=== PATIENT | female | born 1995 | race Caucasian/White ===

== ENCOUNTER 2016-11-03 19:02 | Emergency (ER) | payer OTHER ==
[~2016-11-03] VITALS: Ht 170.2 cm; Wt 63.0 kg
[2016-11-03 19:11] VITALS: BP 143/100; PULSE 75; RESP 18; TEMP 98.3; O2SAT 100
[2016-11-03] MEDS ORDERED: SODIUM CHLORIDE 0.9% FLUSH 10 ML FLUSH IVF PRN (19:30)
--- NOTE | 2016-11-03 19:32 | PD ---
HPI Chief Complaint: General Weakness Time Seen by Provider: 19:28 Travel History International Travel<30 days: No Contact w/Intl Traveler<30days: No Traveled to known affect area: No History of Present Illness HPI 21-year-old female presents to the emergency department by private transportation the care of family for complaint of one week of generalized weakness and intermittent shortness of breath, dizziness, headache, visual blurring, mental fuzziness with history of hypothyroidism, ADD, insomnia, and control use. No recent injury or fall. No recent long distance travel protracted bedrest her surgical procedure denies any fever or chills. Has noted some sinus congestion. Mild sore throat. Patient has had no cough congestion wheezing pleuritic chest pain chest pain palpitations referred neck jaw back shoulder arm or abdominal pain. Patient states intermittently upper and lower extremities feel heavy but no focal numbness tingling or weakness. Patient states on Saturday episode lasted from 1:30 PM until 6 PM while she was in class and between classes at school. 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 Patient is sexually active but states she uses control pills and denies . No reported dysuria frequency urgency hematuria or flank pain. No reported nausea vomiting abdominal pain or change in bowel habits. No family history of arrhythmia, sudden , or early onset heart disease. Family history of hypertension. No tobacco use. Patient reports similar episode of symptoms approximately a month ago however was experienced over a shorter duration. PFSH Past Medical History Narrative Medical Hypothyroidism, ADD, insomnia; no surgeries; no tobacco use, occasional alcohol use; nursing notes reviewed ?: Not Social History Tobacco Use: No Allergies-Medications (Allergen,Severity, Reaction): Coded Allergies: No Known Allergies (Unverified , 11/03/16) Reported Meds & Prescriptions Reported Meds & Active Scripts Active Reported Trinessa (Norgestimate-Ethinyl Estradiol) 0.18/0.215/0.25 mg-35 Mcg Tab 1 Tab PO DAILY Ambien (Zolpidem Tartrate) 10 Mg Tab 10 Mg PO HS PRN Adderall (Amphetamine-Dextroamphetamine) 30 Mg Tab 30 Mg PO BID Avoid late evening doses. Space doses at least 4 to 6 hours if more than once/day dosing. Synthroid (Levothyroxine Sodium) 88 Mcg Tab 88 Mcg PO DAILY Narrative Medication Adderall, Synthroid, control pills, Ambien Review of Systems Except as stated in HPI: all other systems reviewed are Neg General / Constitutional: No: Fever, Chills Eyes: Positive: Blurred Vision, No: Diploplia HENT: Positive: Lightheadedness, Sore Throat, No: Headaches (occasionally), Vertigo, Congestion, Neck Stiffness, Neck Pain, Earache Cardiovascular: No: Chest Pain or Discomfort, Palpitations, Diaphoresis, Syncope (at times feels near syncopal) Respiratory: Positive: Shortness of Breath, No: Cough, Wheezing, Hemoptysis, Pleuritic Pain Gastrointestinal: No: Nausea, Vomiting, Diarrhea, Abdominal Pain Genitourinary: No: Dysuria, Flank Pain, Vaginal Bleeding Musculoskeletal: No: Myalgias, Arthralgias Skin: No Rash Neurologic: Positive: Weakness, Dizziness, Headache (mild), Change in Mentation (at times feels fuzzy), No: Syncope (at times feels near syncopal), Focal Abnormalities, Coordination Problem, Slurred Speech, Paresthesia, Incontinence, Seizures, Sensory Disturbance Psychiatric: No: Anxiety, Depression Endocrine: No: Heat Intolerance Hematologic/Lymphatic: No: Easy Bruising Physical Exam Narrative GENERAL: Well-developed well-nourished female in no acute distress no respiratory distress; GCS 15. SKIN: Warm and dry. HEAD: Atraumatic. Normocephalic. EYES: Pupils equal and round. No scleral icterus. No injection or drainage. No papilledema by funduscopic exam. ENT: No nasal bleeding or discharge. Mucous membranes pink and moist. NECK: Trachea midline. No JVD. CARDIOVASCULAR: Regular rate and rhythm. RESPIRATORY: No accessory muscle use. Clear to auscultation. Breath sounds equal bilaterally. GASTROINTESTINAL: Abdomen soft, non-tender, nondistended. Hepatic and splenic margins not palpable. MUSCULOSKELETAL: Extremities without clubbing, cyanosis, or edema. No obvious deformities. NEUROLOGICAL: Awake and alert. No obvious cranial nerve deficits. Motor grossly within normal limits. Five out of 5 muscle strength in the arms and legs. Sensory exam grossly intact as tested. Deep tendon reflexes 2+ and equal bilaterally. No pronator drift. No limb ataxia. Romberg. Normal speech. PSYCHIATRIC: Appropriate mood and affect; insight and judgment normal. Data Data Last Documented VS Vital Signs Date Time Temp Pulse Resp B/P Pulse Ox O2 Delivery O2 Flow Rate FiO2 11/03/16 21:44 59 18 119/73 100 Room Air 11/03/16 19:11 98.3 Orders Electrocardiogram (11/03/16 19:28) Basic Metabolic Panel (Bmp) (11/03/16 19:28) Ed Urine Pregnancytest Poc (11/03/16 19:28) Complete Blood Count With Diff (11/03/16 19:28) Magnesium (Mg) (11/03/16 19:28) Urinalysis - C+S If Indicated (11/03/16 19:28) Chest, Single Ap (11/03/16 19:28) Ecg Monitoring (11/03/16:28) Iv Access Insert/Monitor (11/03/16 19:28) Oximetry (11/03/16 19:28) Sodium Chloride 0.9% Flush (Ns Flush) (11/03/16 19:30) Orthostatic Vital Signs (11/03/16 19:28) Thyroid Stimulating Hormone (11/03/16 19:28) D-Dimer (11/03/16 19:28) Monoscreen (11/03/16 19:32) Group A Rapid Strep Screen (11/03/16 19:32) Strep Culture (Group A) (11/03/16 19:55) Ct Brain W/O Iv Contrast(Rout) (11/03/16 ) Labs Laboratory Tests Test 11/03/16 11/03/16 19:45 19:55 Urine Collection Type VOIDED Urine Color STRAW Urine Turbidity CLEAR Urine pH 7.0 Urine Specific Mccloud 1.004 Urine Protein NEG mg/dL Urine Glucose (UA) NEG mg/dL Urine Ketones NEG mg/dL Urine Occult Blood NEG Urine Nitrite NEG Urine Bilirubin NEG Urine Leukocyte Esterase NEG Urine WBC 0-2 /hpf Urine Squamous Epithelial 3-5 /hpf Cells Microscopic Urinalysis Comment CULT NOT INDICATED White Blood Count 4.4 TH/MM3 Red Blood Count 4.68 MIL/MM3 Hemoglobin 13.5 GM/DL Hematocrit 40.3 % Mean Corpuscular Volume 86.2 FL Mean Corpuscular Hemoglobin 28.9 PG Mean Corpuscular Hemoglobin 33.5 % Concent Red Cell Distribution Width 13.4 % Platelet Count 257 TH/MM3 Mean Platelet Volume 8.0 FL Neutrophils (%) (Auto) 47.6 % Lymphocytes (%) (Auto) 45.1 % Monocytes (%) (Auto) 6.4 % Eosinophils (%) (Auto) 0.5 % Basophils (%) (Auto) 0.4 % Neutrophils # (Auto) 2.1 TH/MM3 Lymphocytes # (Auto) 2.0 TH/MM3 Monocytes # (Auto) 0.3 TH/MM3 Eosinophils # (Auto) 0.0 TH/MM3 Basophils # (Auto) 0.0 TH/MM3 CBC Comment DIFF FINAL Differential Comment D-Dimer Quantitative (PE/DVT) 0.26 MG/L FEU Sodium Level 143 MEQ/L Potassium Level 4.0 MEQ/L Chloride Level 104 MEQ/L Carbon Dioxide Level 29.2 MEQ/L Anion Gap 10 MEQ/L Blood Urea Nitrogen 10 MG/DL Creatinine 0.97 MG/DL Estimat Glomerular Filtration 72 ML/MIN Rate Random Glucose 71 MG/DL Calcium Level 9.1 MG/DL Magnesium Level 2.5 MG/DL Thyroid Stimulating Hormone 0.237 uIU/ML 3rd Gen Monoscreen NEG MDM Medical Decision Making Medical Screen Exam Complete: Yes Emergency Medical Condition: Yes Medical Record Reviewed: Yes Interpretation(s) EKG: sinus arrhythmia rate [address] elevation or injury pattern or ectopy noted Last Impressions Chest X-Ray 11/03/16 1928 Signed Impressions: Service Date/Time: Thursday, November 03, 2016 20:14 - CONCLUSION: 1. No active disease Kyle Diane MD Head CT 11/03/16 0000 Signed Impressions: Service Date/Time: Thursday, November 03, 2016 22:05 - CONCLUSION: Normal examination for a patient of this age. Kyle Diane MD CBC & BMP Diagram 11/03/16 19:55 D-dimer: Not elevated; rapid strep antigen: Negative; mono screen: Negative; urinalysis normal; [id number] hCG negative Differential Diagnosis Dizziness, sinusitis, arrhythmia, electrolyte disturbance, , PE, UTI, thyroid dysfunction, hypertension, adverse medication reaction, anxiety; unlikely pseudotumor cerebri, mass Narrative Course Patient has been case monitor IV access obtained specimens collected and sent for resulting; orthostatic bp/hr measurements and visual acuities ordered CBC is automated differential mild lymphocytosis possible viral symptoms; complete metabolic panel remarkable for mild hypoglycemia glucose of 71 otherwise values in normal range; TSH is decreased patient's currently taking Synthroid 88 g daily this has been unchanged for some time may require repeat TSH and adjustment of medication downward to 75 g; urinalysis is within normal limits, [id number] hCG is negative; rapid strep antigen and mono screen are negative; d-dimer is 0.26, this is not elevated; chest x-ray no acute process no lobar infiltrate: EKG sinus rhythm with no acute injury pattern or ectopy; visual acuities, mild discrepancy right eye with visual acuity right eye 20/30 left eye 20/20 and both eyes 20/20 patient may require further optometry/ ophthalmology exam to be assessed for corrective lenses no pain no injection no tearing or foreign body sensation, fluorescing staining deferred. CT brain noncontrast normal for age and no acute abnormalities identified Patient monitored and no ectopy by cardiac monitoring oxygenation has remained 98-99% on room air; patient has remained asymptomatic; tolerated oral replacement for hydration well; questions have been answered to the patient's and parent satisfaction. Patient is stable for outpatient management and follow -up with primary care provider Diagnosis Primary Impression: Generalized weakness Additional Impression: Thyroid dysfunction Referrals: Primary Care Physician 2 days Patient Instructions: General Instructions Additional Instructions: Follow-up with primary care provider regarding thyroid medication; and with welfare case worker/case supervisor Increase fluid hydration Return to the emergency department for any concerns or change in condition Med/Other Pt SpecificInfo: No Change to Meds Disposition: 01 DISCHARGE HOME Condition: Stable Karissa Jon MD Nov 03, 2016 19:32
[2016-11-03 19:36] VITALS: RESP 18; O2SAT 100
[2016-11-03 20:20] LABS: BLOOD, URINE NEG (NEG); GLUCOSE,URINE NEG (NEG); KETONE, URINE NEG (NEG); NITRITE,URINE NEG (NEG)
[2016-11-03 20:21] LABS: AUTOMATED NEUTROPHIL # 2.1 TH/MM3 (1.8-7.7); BASOPHIL % 0.4 % (0.0-2.0); EOSINOPHIL % 0.5 % (0.0-4.0); HEMATOCRIT 40.3 % (35.0-46.0); HEMO FLAGS DIFF FINAL; LYMPH % 45.1 % (9.0-44.0); MEAN CELL VOLUME 86.2 FL (80.0-100.0); MEAN CORPUSCULAR HEMOGLOBIN 28.9 PG (27.0-34.0); MEAN CORPUSCULAR HGB CONC 33.5 % (32.0-36.0); MONO % 6.4 % (0.0-8.0); NEUT % 47.6 % (16.0-70.0); PLATELET COUNT 257 TH/MM3 (150-450); RED BLOOD COUNT 4.68 MIL/MM3 (4.00-5.30); RED CELL DISTRIBUTION WIDTH 13.4 % (11.6-17.2); WHITE BLOOD COUNT 4.4 TH/MM3 (4.0-11.0)
[2016-11-03 20:22] VITALS: BP_SYST 107; BP_SYST 112; BP_SYST 130; BP_DIAS 65; BP_DIAS 78; BP_DIAS 82; RESP 16
[2016-11-03 20:37] LABS: BICARBONATE 29.2 MEQ/L (21.0-32.0); MAGNESIUM 2.5 MG/DL (1.5-2.5)
[2016-11-03 20:50] VITALS: BP 115/72; PULSE 66; RESP 18; O2SAT 100
[2016-11-03] MEDS ORDERED: ADDE30TA PO (20:53)
[2016-11-03] MEDS ORDERED: AMBI10TA PO (20:53)
[2016-11-03] MEDS ORDERED: TRINTAB7 PO (20:53)
[2016-11-03] MEDS ORDERED: SYNT88TA PO (20:53)
[2016-11-03 20:55] LABS: METHOD OF COLLECTION VOIDED; URINE COLOR STRAW (YELLW/STRAW)
--- NOTE | 2016-11-03 20:55 | RADHPO ---
EXAM DATE/TIME: 11/03/2016 20:14 [facility] COMPARISON: No previous studies available for comparison. INDICATIONS : Weakness and shortness of breath. MEDICAL HISTORY : None. SURGICAL HISTORY : None. ENCOUNTER: Initial ACUITY: 3 days PAIN SCORE: 0/10 LOCATION: Bilateral chest FINDINGS: A single view of the chest demonstrates the lungs to be symmetrically aerated without evidence of mas s, infiltrate or effusion. The cardiomediastinal contours are unremarkable. Osseous structures are intact. CONCLUSION: 1. No active disease Kyle Diane MD on November 03, 2016 at 20:53 Board Certified Radiologist. This report was verified electronically.
[2016-11-03 20:57] LABS: COMMENT (UR) CULT NOT INDICATED; CULTURE IF INDICATED CULT NOT INDICATED; WBC, URINE 0-2 /hpf (0-5)
[2016-11-03 21:44] VITALS: BP 119/73; PULSE 59; RESP 18; O2SAT 100
--- NOTE | 2016-11-03 22:35 | RADHPO ---
EXAM DATE/TIME: 11/03/2016 22:05 [facility] COMPARISON: No previous studies available for comparison. INDICATIONS : Dizziness. RADIATION DOSE: 61.56 CTDIvol (mGy) MEDICAL HISTORY : None SURGICAL HISTORY : None. ENCOUNTER: Initial ACUITY: 1 day PAIN SCALE: 0/10 LOCATION: cranial TECHNIQUE: Multiple contiguous axial images were obtained of the head. Using automated exposure control and adj ustment of the mA and/or kV according to patient size, radiation dose was kept as low as reasonably a chievable to obtain optimal diagnostic quality images. FINDINGS: CEREBRUM: The ventricles are normal for age. No evidence of midline shift, mass lesion, hemorrhage or acute in farction. No extra-axial fluid collections are seen. POSTERIOR FOSSA: The cerebellum and brainstem are intact. The 4th ventricle is midline. The cerebellopontine angle i s unremarkable. EXTRACRANIAL: The visualized portion of the orbits is intact. SKULL: The calvaria is intact. No evidence of skull fracture. CONCLUSION: Normal examination for a patient of this age. Kyle Diane MD on November 03, 2016 at 22:33 Board Certified Radiologist. This report was verified electronically.
[2016-11-03 23:04] VITALS: BP 116/82
--- NOTE | 2016-11-04 15:58 | EKG ---
Date Performed: 11/03/2016 Time Performed: 19:47:32 PTAGE: 21 years EKG: Sinus arrhythmia Normal ECG NO PREVIOUS TRACING DOCTOR: Leander Hitchcock Interpretating Date/Time 11/04/2016 15:57:33
== END 2016-11-03 23:07 | disposition home or self-care (01) ==
LOC: PHED 19:02
DX: R53.1 Weakness (principal); E07.9 Disorder of thyroid, unspecified; R06.02 Shortness of breath; R42 Dizziness and giddiness; R51 Headache; H53.8 Other visual disturbances; R09.81 Nasal congestion; R07.0 Pain in throat; E03.9 Hypothyroidism, unspecified; Z79.899 Other long term (current) drug therapy; Z86.59 Personal history of other mental and behavioral disorders
CPT/HCPCS: 70450; 71010; 80048; 81001; 83735; 84443; 84703; 85025; 85379; 86308; 87081; 87880; 93005